=== PATIENT | female | born 1975 | race Caucasian/White ===

== ENCOUNTER → 2017-03-09 | Outpatient (CLI) | payer OTHER ==
--- NOTE | 2017-03-09 12:55 | CT ---
EXAMINATION TYPE: CT brain wo con DATE OF EXAM: 03/09/2017 COMPARISON: NONE HISTORY: 41-year-old female complains of chronic migraine headaches. TECHNIQUE: Examination was done in axial plane without intravenous contrast. Coronal and sagittal r econstructions performed. CT DLP: 1028 mGycm Automated exposure control for dose reduction was used. FINDINGS: Mild calvarial artifacts are present. Within this limitation, there is no evidence of acute intracra nial hemorrhage, acute ischemic changes, mass, mass-effect, or extra-axial fluid collection. There i s no effacement of cerebral sulci or basal subarachnoid cisterns. There is no hydrocephalus. There is no midline shift. Escudero-white matter distinction is preserved. Partially empty sella. Paranasal sinuses and mastoid air cells well pneumatized. Patient's gaze is divergent suggesting unde rlying strabismus. IMPRESSION: 1. No acute intracranial abnormality seen. 2. Divergent gaze suggests underlying strabismus. Clinically correlate.
--- NOTE | 2017-03-09 13:02 | MR ---
EXAMINATION TYPE: MR lumbar spine wo con DATE OF EXAM: 03/09/2017 12:33 PM COMPARISON: NONE HISTORY: Lumbago Multiplanar, MultiSpin echo imaging of the lumbar spine was performed. L1-L2: Normal disc appearance without desiccation. No herniation, protrusion or disc bulging. No ca nal stenosis is present. Foramina are patent bilaterally. L2-L3: Mild disc desiccation. No significant disc bulge or herniation. No central stenosis. Foramina are patent bilaterally. L3-L4: Mild to moderate disc desiccation. Posterocentral disc bulge with annular tear effaces the thomas tral thecal sac. No evidence for central stenosis or lateral recess stenosis. Foramina are patent praveen aterally. L4-L5: Mild to moderate disc desiccation. Posterocentral disc bulge with annular tear effaces the thomas tral thecal sac. No evidence for central stenosis or lateral recess stenosis. Foramina are patent praveen aterally. L5-S1: Moderate disc desiccation. Broad-based subligamentous disc herniation effaces the ventral thec al sac. No evidence for extruded component. Borderline right lateral recess stenosis. No evidence for central stenosis. No evidence for foraminal encroachment. Lumbar segments are intact. No paraspinal masses are identified. Conus medullaris has a normal appe arance. IMPRESSION: 1. Multilevel degenerative disc disease. 2. Disc bulging with annular tears at L3-4 and L4-5. Broad-based mild subligamentous disc herniation at L5-S1 as noted above.
== END | disposition home or self-care (01) ==
LOC: RADCTMAIN 11:29
PROVIDERS: ATTEND Psychiatry & Neurology Neurology
DX: M51.27 Other intervertebral disc displacement, lumbosacral region (principal); M51.36 Other intervertebral disc degeneration, lumbar region; H70.92 Unspecified mastoiditis, left ear
CPT/HCPCS: 70450; 72148

== ENCOUNTER → 2017-04-08 | Outpatient (CLI) | payer OTHER ==
--- NOTE | 2017-04-11 08:14 | MM ---
Reason for exam: screening (asymptomatic). Baseline mammogram. History: Patient is nulliparous. Family history of breast cancer in maternal aunt at age 30. Taking hormonal contraceptives for 1 year. Physical Findings: Nurse did not find any significant physical abnormalities on exam. MG Screening Mammo w CAD Bilateral CC, MLO, and XCCL view(s) were taken. There are bilateral rounded masses in the upper outer quadrant at posterior depth, possible lymph nodes, precautionary ultrasound will be performed. These results were verbally communicated with the patient and result sheet given to the patient on 04/08/17. ASSESSMENT: Incomplete: need additional imaging evaluation, BI-RAD 0 RECOMMENDATION: Ultrasound of both breasts. (upper outer quadrant)
--- NOTE | 2017-04-11 08:20 | USB ---
Reason for exam: additional evaluation requested from abnormal screening. History: Patient is nulliparous. Family history of breast cancer in maternal aunt at age 30. Taking hormonal contraceptives for 1 year. US Breast Limited BILAT Right breast ultrasound demonstrates a 0.7 x 0.5 x 1.0cm oval, solid lesion at 10 o'clock. Left breast ultrasound demonstrates a 0.5 x 0.5 x 0.5cm round lesion at 3 o'clock and an adjacent 0.6 x 0.3cm lesion at 3 o'clock. Benign non-enlarged lymph nodes with non-enlarged cortices. These results were verbally communicated with the patient and result sheet given to the patient on 04/08/17. ASSESSMENT: Benign, BI-RAD 2 RECOMMENDATION: Routine screening mammogram of both breasts in 1 year.
== END ==
LOC: RADMAMWWP 12:51
PROVIDERS: ATTEND Internal Medicine Geriatric Medicine
DX: Z12.31 Encounter for screening mammogram for malignant neoplasm of breast (principal)
CPT/HCPCS: 76642; G0202

== ENCOUNTER 2017-04-21 17:41 | Observation (INO) | payer OTHER ==
[2017-04-21] MEDS ORDERED: MORPHINE SULFATE 10 MG/ML SYRINGE IV STA (18:01)
[2017-04-21] MEDS ORDERED: SODIUM CHLORIDE 0.9% 1,000 ML IV STA ×2 (18:01)
[2017-04-21] MEDS ORDERED: SODIUM CHLORIDE 0.9% 500 ML IV STA (18:01)
[2017-04-21 18:28] LABS: Basophils # (A) 0.1 k/uL (0-0.2); Basophils % (A) 1 %; CH 30.4; CHCM 33.1; Eosinophils # (A) 0.2 k/uL (0-0.7); Eosinophils % (A) 2 %; HCT 46.2 % (34.0-46.0); HDW 2.46; HGB 14.8 gm/dL (11.4-16.0); Luc # (Auto) 0.07; Luc % (Auto) 1; Lymphocytes % (A) 20 %; MCH 29.7 pg (25.0-35.0); MCHC 32.1 g/dL (31.0-37.0); MCV 92.3 fL (80.0-100.0); Mean Platelet Volume 7.1; Monocytes # (A) 0.4 k/uL (0-1.0); Monocytes % (A) 4 %; Neutrophils # (A) 7.3 k/uL (1.3-7.7); Neutrophils % (A) 73 %; RDW 11.9 % (11.5-15.5); WBC (Perox) 9.36
[2017-04-21 18:40] LABS: ALT 23 U/L (9-52); AST 14 U/L (14-36); Alkaline Phosphatase 94 U/L (38-126); Anion Gap 19 mmol/L; Blood Urea Nitrogen 11 mg/dL (7-17); Calcium 10.7 mg/dL (8.4-10.2); Carbon Dioxide 17 mmol/L (22-30); Chloride 107 mmol/L (98-107); Glucose 125 mg/dL (74-99); Magnesium 1.7 mg/dL (1.6-2.3); Non-African American GFR(MDRD) >60 (>60 ml/min/1.73 sqM); Potassium 3.9 mmol/L (3.5-5.1); Sodium 143 mmol/L (137-145); Total Bilirubin 0.6 mg/dL (0.2-1.3); Total Protein 8.1 g/dL (6.3-8.2)
[2017-04-21 18:42] LABS: INR 0.9 (<1.2); Partial Thromboplastin Time 23.1 sec (22.0-30.0); Prothrombin Time 9.7 sec (9.0-12.0)
[2017-04-21] MEDS ORDERED: ONDANSETRON 4 MG/2 ML VIAL IVP STA (18:42)
--- NOTE | 2017-04-21 18:43 | XR ---
EXAMINATION TYPE: XR chest 2V DATE OF EXAM: 04/21/2017 COMPARISON: NONE HISTORY: Chest pain TECHNIQUE: Frontal and lateral views of the chest are obtained. FINDINGS: Heart and mediastinum are normal. Lungs are clear. Diaphragm is normal. Bony thorax is int act. There are chest leads. IMPRESSION: Normal chest
[2017-04-21 18:50] LABS: Creatine Kinase 32 U/L (30-135)
[2017-04-21 19:03] LABS: Creatine Kinase MB <0.2 ng/mL (0.0-2.4); Troponin I <0.012 ng/mL (0.000-0.034)
--- NOTE | 2017-04-21 19:07 | ED ---
General Adult HPI - General Chief complaint: Chest Pain Stated complaint: Chest Pain Time Seen by Provider: 04/21/17 18:00 Source: patient, RN notes reviewed, old records reviewed Mode of arrival: wheelchair Limitations: no limitations - History of Present Illness Initial comments: This is a 41-year-old female to the ER for evaluation regarding chest pain. Patient was essay for evaluation of a severe anterior chest pain. Chest pain or back. Nausea. Patient denies fever cough or congestion. Patient has history of diabetes occasionally elevated blood pressure his blood pressure is elevated now at persistent tachycardia. Patient denies recent travel history. Patient is from out of town states she has no doctor in the area. Patient admits chronic pain history. But states she never has this severe chest pain that is covered by shortness of breath. Patient feels exertional shortness of breath as well. - Related Data Home Medications Medication Instructions Recorded Confirmed Atorvastatin Calcium [Lipitor] 10 mg PO HS 04/21/17 04/21/17 Diltiazem HCl [Cartia Xt] 120 mg PO DAILY 04/21/17 04/21/17 Hydrocodone/Acetaminophen [[place] 1 tab PO Q6H PRN 04/21/17 04/21/17 10-325] Insulin Glargine [Lantus] 15 unit SQ HS 04/21/17 04/21/17 Ketorolac [Toradol] 10 mg PO Q4-6H PRN 04/21/17 04/21/17 Medroxyprogesterone Acetate 150 mg IM Q90D 04/21/17 04/21/17 [Depo-Provera] Promethazine [Phenergan] 25 mg PO Q4-6H PRN 04/21/17 04/21/17 Topiramate [Topamax] 100 mg PO BID 04/21/17 04/21/17 buPROPion HCL [Wellbutrin XL] 300 mg PO DAILY 04/21/17 04/21/17 sitaGLIPtin PHOS/metFORMIN HCL 1 tab PO BID 04/21/17 04/21/17 [Janumet Xr 50-1,000 mg Tablet] Allergies Allergy/AdvReac Type Severity Reaction Status Date / Time ciprofloxacin AdvReac COMPLEX Verified 04/21/17 19:23 MIGRAINE Review of Systems ROS Statement: Those systems with pertinent positive or pertinent negative responses have been documented in the HPI. ROS Other: All systems not noted in ROS Statement are negative. Past Medical History Past Medical History: Diabetes Mellitus Additional Past Medical History / Comment(s): Migraine headaches, herniated discs in back, neuropathy in legs and feet History of Any Multi-Drug Resistant Organisms: None Reported Past Surgical History: Orthopedic Surgery, Tonsillectomy Past Psychological History: Depression Smoking Status: Former smoker Past Alcohol Use History: Occasional Past Drug Use History: None Reported General Exam Limitations: no limitations General appearance: alert, in no apparent distress, anxious Head exam: Present: atraumatic, normocephalic, normal inspection Eye exam: Present: normal appearance, PERRL, EOMI. Absent: scleral icterus, conjunctival injection, periorbital swelling ENT exam: Present: normal exam, mucous membranes moist Neck exam: Present: normal inspection. Absent: tenderness, meningismus, lymphadenopathy Respiratory exam: Present: normal lung sounds bilaterally. Absent: respiratory distress, wheezes, rales, rhonchi, stridor Cardiovascular Exam: Present: normal rhythm, tachycardia, normal heart sounds. Absent: systolic murmur, diastolic murmur, rubs, gallop, clicks GI/Abdominal exam: Present: soft, normal bowel sounds. Absent: distended, tenderness, guarding, rebound, rigid Extremities exam: Present: normal inspection, full ROM, normal capillary refill. Absent: tenderness, pedal edema, joint swelling, calf tenderness Back exam: Present: normal inspection Neurological exam: Present: alert, oriented X3, CN II-XII intact Psychiatric exam: Present: normal affect, normal mood Skin exam: Present: warm, dry, intact, normal color. Absent: rash Course Vital Signs 04/21/17 04/21/17 04/21/17 17:43 18:22 18:40 Temperature 97.5 F L Pulse Rate 142 H 118 H Pulse Rate [ 132 H Pulse Oximetery ] Respiratory 24 24 20 Rate Blood Pressure 117/77 120/71 O2 Sat by Pulse 96 99 Oximetry 04/21/17 20:22 Temperature Pulse Rate 115 H Pulse Rate [ Pulse Oximetery ] Respiratory 16 Rate Blood Pressure 119/79 O2 Sat by Pulse 96 Oximetry - Reevaluation(s) Reevaluation #1: 04/21/17 21:24 Patient's heart rate is mildly improvement with IV resuscitation, pain control EKG Findings - EKG Comments: EKG Findings:: EKG shows sinus tachycardia rate 125, DE 120, QRS 68, QTC 585 Medical Decision Making - Medical Decision Making 41 female in the ER fevers urinary chest pain tachycardia and shortness of breath. Patient be admitted for cardiac observation - Lab Data Result diagrams: 04/21/17 18:18 04/21/17 18:18 Lab Results 04/21/17 04/21/17 04/21/17 Range/Units 18:18 18:18 18:18 WBC 10.0 (3.8-10.6) k/uL RBC 5.00 (3.80-5.40) m/uL Hgb 14.8 (11.4-16.0) gm/dL Hct 46.2 H (34.0-46.0) % MCV 92.3 (80.0-100.0) fL MCH 29.7 (25.0-35.0) pg MCHC 32.1 (31.0-37.0) g/dL RDW 11.9 (11.5-15.5) % Plt Count 402 (150-450) k/uL Neutrophils % 73 % Lymphocytes % 20 % Monocytes % 4 % Eosinophils % 2 % Basophils % 1 % Neutrophils # 7.3 (1.3-7.7) k/uL Lymphocytes # 2.0 (1.0-4.8) k/uL Monocytes # 0.4 (0-1.0) k/uL Eosinophils # 0.2 (0-0.7) k/uL Basophils # 0.1 (0-0.2) k/uL PT (9.0-12.0) sec INR (<1.2) APTT (22.0-30.0) sec D-Dimer (<0.60) mg/L FEU Sodium 143 (137-145) mmol/L Potassium 3.9 (3.5-5.1) mmol/L Chloride 107 (98-107) mmol/L Carbon Dioxide 17 L (22-30) mmol/L Anion Gap 19 mmol/L BUN 11 (7-17) mg/dL Creatinine 0.69 (0.52-1.04) mg/dL Est GFR (MDRD) Af Amer >60 (>60 ml/min/1.73 sqM) Est GFR (MDRD) Non-Af >60 (>60 ml/min/1.73 sqM) Glucose 125 H (74-99) mg/dL Calcium 10.7 H (8.4-10.2) mg/dL Magnesium 1.7 (1.6-2.3) mg/dL Total Bilirubin 0.6 (0.2-1.3) mg/dL AST 14 (14-36) U/L ALT 23 (9-52) U/L Alkaline Phosphatase 94 (38-126) U/L Total Creatine Kinase 32 (30-135) U/L CK-MB (CK-2) <0.2 (0.0-2.4) ng/mL CK-MB (CK-2) Rel Index Troponin I <0.012 (0.000-0.034) ng/mL Total Protein 8.1 (6.3-8.2) g/dL Albumin 5.4 H (3.5-5.0) g/dL Lipase 171 (23-300) U/L 04/21/ Range/Units 18:18 WBC (3.8-10.6) k/uL RBC (3.80-5.40) m/uL Hgb (11.4-16.0) gm/dL Hct (34.0-46.0) % MCV (80.0-100.0) fL MCH (25.0-35.0) pg MCHC (31.0-37.0) g/dL RDW (11.5-15.5) % Plt Count (150-450) k/uL Neutrophils % % Lymphocytes % % Monocytes % % Eosinophils % % Basophils % % Neutrophils # (1.3-7.7) k/uL Lymphocytes # (1.0-4.8) k/uL Monocytes # (0-1.0) k/uL Eosinophils # (0-0.7) k/uL Basophils # (0-0.2) k/uL PT 9.7 (9.0-12.0) sec INR 0.9 (<1.2) APTT 23.1 (22.0-30.0) sec D-Dimer 0.27 (<0.60) mg/L FEU Sodium (137-145) mmol/L Potassium (3.5-5.1) mmol/L Chloride (98-107) mmol/L Carbon Dioxide (22-30) mmol/L Anion Gap mmol/L BUN (7-17) mg/dL Creatinine (0.52-1.04) mg/dL Est GFR (MDRD) Af Amer (>60 ml/min/1.73 sqM) Est GFR (MDRD) Non-Af (>60 ml/min/1.73 sqM) Glucose (74-99) mg/dL Calcium (8.4-10.2) mg/dL Magnesium (1.6-2.3) mg/dL Total Bilirubin (0.2-1.3) mg/dL AST (14-36) U/L ALT (9-52) U/L Alkaline Phosphatase (38-126) U/L Total Creatine Kinase (30-135) U/L CK-MB (CK-2) (0.0-2.4) ng/mL CK-MB (CK-2) Rel Index Troponin I (0.000-0.034) ng/mL Total Protein (6.3-8.2) g/dL Albumin (3.5-5.0) g/dL Lipase (23-300) U/L - Radiology Data Radiology results: report reviewed (Chest x-ray CT chest negative for acute disease), image reviewed Critical Care Time Critical Care Time: Yes Total Critical Care Time: 31 Disposition Clinical Impression: Chest pain Disposition: ADMITTED IP TO THIS [facility] Condition: Undetermined
[2017-04-21] MEDS ORDERED: LORazepam 2 MG/ML INJ IV STA (19:25)
[2017-04-21] MEDS ORDERED: HYDROmorphone 2 MG/ML 1 ML SYRINGE IVP STA (19:25)
[2017-04-21] MEDS ORDERED: diphenhydrAMINE 50 MG/ML 1 ML VIAL IVP STA (19:25)
[2017-04-21] MEDS ORDERED: RX INFO: IV CONTRAST WAS GIVEN 1 EACH MISC MISCELLANE PRN (19:26)
--- NOTE | 2017-04-21 20:10 | CT ---
EXAMINATION TYPE: CT angio chest DATE OF EXAM: 04/21/2017 8:02 PM COMPARISON: NONE HISTORY: Chest pain and shortness of breath CT DLP: 444 mGycm Automated exposure control for dose reduction was used. CONTRAST: CTA scan of the thorax is performed with IV Contrast, patient injected with 100 mL of Omnipaque 350, pulmonary embolism protocol. There are 3-D post processed images.. FINDINGS: The lungs are clear of consolidation. There is no pleural effusion. There is no evidence of aortic aneurysm or dissection. I see no filling defects in the pulmonary arteries. There are no hilar masses. There is no mediastina l adenopathy. Bony thorax is intact. IMPRESSION: NEGATIVE CT ANGIOGRAM OF THE CHEST. NO EVIDENCE OF PULMONARY EMBOLISM.
[2017-04-21] MEDS ORDERED: HEPARIN SODIUM,PORCINE 5,000 UNIT/ML 1 ML VIAL IV ONE (20:22)
[2017-04-21] MEDS ORDERED: NITROGLYCERIN SL TABS 0.4 MG TAB SUBLINGUAL PRN (20:22)
[2017-04-21] MEDS ORDERED: HEPARIN SODIUM,PORCINE 5,000 UNIT/ML 1 ML VIAL IV PRN (20:22)
[2017-04-21] MEDS ORDERED: HEPARIN SODIUM,PORCINE/D5W PMX 25,000 UNIT in DEXTROSE/WATER 1 500ML.BAG IV SCH (20:30)
[2017-04-21] MEDS ORDERED: PROMETHAZINE 25 MG TAB PO PRN (22:52)
[2017-04-21] MEDS ORDERED: INSULIN GLARGINE 100 UNIT/ML 10 ML VIAL SQ SCH (23:00)
[2017-04-21] MEDS ORDERED: ATORVASTATIN 10 MG TAB PO SCH (23:00)
[2017-04-21 23:06] LABS: Glucose,Whole Blood 152 mg/dL (75-99)
[2017-04-21] MEDS: LORazepam 2 MG/ML INJ IV PRN (23:25)
[2017-04-21] MEDS: HYDROmorphone 2 MG/ML 1 ML SYRINGE IVP PRN (23:26)
[2017-04-21] MEDS: LINAGLIPTIN 5 MG TABLET PO SCH (23:27)
[2017-04-21] MEDS: TOPIRAMATE 25 MG TAB PO SCH (23:27)
[2017-04-22 01:41] LABS: Creatine Kinase 35 U/L (30-135)
[2017-04-22 01:55] LABS: Creatine Kinase MB <0.2 ng/mL (0.0-2.4); Troponin I <0.012 ng/mL (0.000-0.034)
[2017-04-22] MEDS: HYDROmorphone 2 MG/ML 1 ML SYRINGE IVP PRN ×2 (03:36→07:45)
[2017-04-22] MEDS: LORazepam 2 MG/ML INJ IV PRN ×2 (03:36→12:12)
[2017-04-22 05:06] LABS: Cholesterol 90 mg/dL (<200); HDL Cholesterol 27 mg/dL (40-60)
[2017-04-22 07:05] LABS: Glucose,Whole Blood 154 mg/dL (75-99)
[2017-04-22 07:46] VITALS: RESP 18
[2017-04-22 08:19] LABS: Creatine Kinase 29 U/L (30-135)
[2017-04-22 08:32] LABS: Creatine Kinase MB <0.2 ng/mL (0.0-2.4); Troponin I <0.012 ng/mL (0.000-0.034)
[2017-04-22] MEDS ORDERED: ASPIRIN 325 MG TAB PO SCH (09:00)
[2017-04-22] MEDS ORDERED: ATORVASTATIN 80 MG TAB PO SCH (09:00)
[2017-04-22] MEDS ORDERED: AMINOPHYLLINE 500 MG/20 ML VIAL IV PRN (09:40)
[2017-04-22] MEDS ORDERED: REGADENOSON 0.4 MG/5 ML SYRINGE IV ONE (09:40)
[2017-04-22] MEDS ORDERED: METOPROLOL TARTRATE 50 MG TAB PO SCH (11:30)
--- NOTE | 2017-04-22 11:32 | P.CRDCN ---
History of Present Illness Consult date: 04/22/17 History of present illness: This is a 41-year-old Caucasion female with past medical history significant for diabetes mellitus, anxiety and migraine headaches. She denies history of CAD and has never seen a operations associate for any reason. We have been asked to see her in consultation for complaints of left anterior wall chest pain intermittently for the previous 2-3 weeks. She states the pain varies from sharp to heavy. It is not associated with movement or deep inspiration. She can specify no aggravating or alleviating factors. She c/o associated intermittent shortness of breath and radiation to her left upper arm at times. She denies orthopnea or PND. Heart rate upon arrival was 133. She is prescribed diltiazam per PCP to be used for migraine prevention per the patient. She states she only recently started taking this again because she felt it wasn't working. EKG reveals sinus tachycardia with rate of 125 iwth T-wave inversions in inferior leads. There is no old EKG for comparison. Chest xray negative for an acute cardiopulmoary process. CTA negative for PE. Cardiac enzymes negative x3, potassium 3.9, magnesium 1.7, Hgb 14.8, platelets 369. Blood pressure 118/76 with heart rate 116. Review of Systems CONSTITUTIONAL: Denies fever. Denies chills. EYES: Denies blurred vision. Denies vision changes. Denies eye pain. EARS, NOSE, MOUTH & THROAT: Complains of constant chronic headache headache. Denies sore throat. Denies ear pain. CARDIOVASCULAR: Complains of intermittent chest pain. Denies shortness of breath. Denies orthopnea. Denies PND. Complains of constant palpitations. RESPIRATORY: Denies cough. GASTROINTESTINAL: Denies abdominal pain. Denies diarrhea. Denies constipation. Denies nausea. Denies vomiting. MUSCULOSKELETAL: Denies myalgias. INTEGUMENTARY: Denies pruitis. Denies rash. NEUROLOGIC: Denies numbness. Denies tingling. Denies weakness. PSYCHIATRIC: Denies anxiety. Denies depression. ENDOCRINE: Denies fatigue. Denies weight change. Denies polydipsia. Denies polyurina. GENITOURINARY: Denies burning, hematuria or urgency with micturation. HEMATOLOGIC: Denies history of anemia. Denies bleeding. Past Medical History Past Medical History: Diabetes Mellitus Additional Past Medical History / Comment(s): severe Migraine headaches, gastroparesis, herniated discs in back and neck, neuropathy in legs and feet History of Any Multi-Drug Resistant Organisms: None Reported Past Surgical History: Orthopedic Surgery, Tonsillectomy Additional Past Surgical History / Comment(s): left humerus blaise and 8 pins Past Anesthesia/Blood Transfusion Reactions: No Reported Reaction Past Psychological History: Anxiety, Depression Smoking Status: Never smoker Past Alcohol Use History: Occasional Past Drug Use History: None Reported - Past Family History Mother Family Medical History: Diabetes Mellitus, Myocardial Infarction ([place]), Renal Disease Additional Family Medical History / Comment(s): epilepsy, depression and migraines Medications and Allergies Home Medications Medication Instructions Recorded Confirmed Type Atorvastatin Calcium [Lipitor] 10 mg PO HS 04/21/17 04/21/17 History Diltiazem HCl [Cartia Xt] 120 mg PO DAILY 04/21/17 04/21/17 History Insulin Glargine [Lantus] 15 unit SQ HS 04/21/17 04/21/17 History Ketorolac [Toradol] 10 mg PO Q4-6H PRN 04/21/17 04/21/17 History Medroxyprogesterone Acetate 150 mg IM Q90D 04/21/17 04/21/17 History [Depo-Provera] Promethazine [Phenergan] 25 mg PO Q4-6H PRN 04/21/17 04/21/17 History Topiramate [Topamax] 75 mg PO BID 04/21/17 04/21/17 History buPROPion HCL [Wellbutrin XL] 300 mg PO DAILY 04/21/17 04/21/17 History sitaGLIPtin PHOS/metFORMIN HCL 1 tab PO BID 04/21/17 04/21/17 History [Janumet Xr 50-1,000 mg Tablet] Allergies Allergy/AdvReac Type Severity Reaction Status Date / Time ciprofloxacin AdvReac COMPLEX Verified 04/21/17 19:23 MIGRAINE metoclopramide [From Reglan] AdvReac Itching Verified 04/22/17 03:49 Physical Exam Vitals: Vital Signs Temp Pulse Pulse Pulse Resp BP BP 04/22/17 08:46 103 H 04/22/17 07:45 97.5 F L 116 H 18 118/76 04/22/17 03:45 97 16 04/22/17 03:41 98.1 F 98 16 102/59 04/21/17 23:56 98.3 F 122 H 16 111/73 04/21/17 23:50 98.5 F 124 H 18 125/78 04/21/17 22:00 113 H 18 04/21/17 21:23 112 H 18 129/77 04/21/17 20:22 115 H 16 119/79 04/21/17 18:40 118 H 20 120/71 04/21/17 18:22 132 H 24 04/21/17 17:43 97.5 F L 142 H 24 117/77 Pulse Ox 04/22/17 08:46 04/22/17 07:45 96 04/22/17 03:45 04/22/17 03:41 99 04/21/17 23:56 97 04/21/17 23:50 94 L 04/21/17 22:00 04/21/17 21:23 98 04/21/17 20:22 96 04/21/17 18:40 99 04/21/17 18:22 04/21/17 17:43 96 Intake and Output 04/21/17 04/22/17 04/22/17 22:59 06:59 14:59 Intake Total 130.556 Balance 130.556 Intake: Intake, IV Titration 130.556 Amount Heparin Sodium,Porcine/ 130.556 D5w Pmx 25,000 unit In Dextrose/Water 1 500ml. bag @ 12 UNITS/KG/HR 15. 24 mls/hr IV .Q24H [facility] Rx #:[id number] Other: Voiding Method Toilet Toilet Toilet # Voids 1 2 Weight 63.503 kg GENERAL: This is a 41-year-old female in no apparent distress at the time of my examination. HEENT: Head is atraumatic, normocephalic. Pupils are equal, round. Sclerae anicteric. Conjunctivae are clear. Mucous membranes of the mouth are moist. Neck is supple. There is no jugular venous distention. No carotid bruit is heard. LUNGS: Clear to auscultation no wheezes, rales or rhonchi. No chest wall tenderness is noted on palpation or with deep breathing. HEART: Regular rate and rhythm without murmurs, rubs or gallops. S1 and S2 heard. ABDOMEN: Soft, nontender. Bowel sounds are heard. No organomegaly noted. EXTREMITIES: 2+ peripheral pulses with no evidence of peripheral edema and no calf tenderness noted. NEUROLOGIC: Patient is awake, alert and oriented x3. Results 04/22/17 04:06 04/21/17 18:18 Cardiac Enzymes 04/21/17 04/21/17 04/22/17 Range/Units 18:18 18:18 00:48 AST 14 (14-36) U/L CK-MB (CK-2) <0.2 <0.2 (0.0-2.4) ng/mL Troponin I <0.012 <0.012 (0.000-0.034) ng/mL 04/22/17 Range/Units 07:17 AST (14-36) U/L CK-MB (CK-2) <0.2 (0.0-2.4) ng/mL Troponin I <0.012 (0.000-0.034) ng/mL Coagulation 04/21/17 04/22/17 Range/Units 18:18 04:06 PT 9.7 (9.0-12.0) sec APTT 23.1 27.9 (22.0-30.0) sec Lipids 04/22/17 Range/Units 04:06 Triglycerides 235 H (<150) mg/dL Cholesterol 90 (<200) mg/dL HDL Cholesterol 27 L (40-60) mg/dL CBC 04/21/17 04/22/17 Range/Units 18:18 04:06 WBC 10.0 (3.8-10.6) k/uL RBC 5.00 (3.80-5.40) m/uL Hgb 14.8 (11.4-16.0) gm/dL Hct 46.2 H (34.0-46.0) % Plt Count 402 369 (150-450) k/uL Comprehensive Metabolic Panel 04/21/17 Range/Units 18:18 Sodium 143 (137-145) mmol/L Potassium 3.9 (3.5-5.1) mmol/L Chloride 107 (98-107) mmol/L Carbon Dioxide 17 L (22-30) mmol/L BUN 11 (7-17) mg/dL Creatinine 0.69 (0.52-1.04) mg/dL Glucose 125 H (74-99) mg/dL Calcium 10.7 H (8.4-10.2) mg/dL AST 14 (14-36) U/L ALT 23 (9-52) U/L Alkaline Phosphatase 94 (38-126) U/L Total Protein 8.1 (6.3-8.2) g/dL Albumin 5.4 H (3.5-5.0) g/dL Current Medications Generic Name Dose Route Start Last Admin Trade Name Freq PRN Reason Stop Dose Admin Aminophylline 100 mg 04/22/17 09:40 Aminophylline IV ONCE PRN Patient Response Aspirin 325 mg 04/22/17 09:00 Aspirin PO DAILY STEPHEN Atorvastatin Calcium 10 mg 04/21/17 23:00 04/21/17 23:27 Lipitor PO 10 mg HS STEPHEN Administration Hydromorphone HCl 2 mg 04/21/17 19:25 04/22/17 07:45 Dilaudid IVP 2 mg Q4HR PRN Administration Pain Insulin Glargine 15 unit 04/21/17 23:00 04/21/17 23:27 Lantus SQ 15 unit HS STEPHEN Administration Linagliptin 5 mg 04/21/17 23:00 04/21/17 23:27 Tradjenta PO 5 mg DAILY STEPHEN Administration Lorazepam 1 mg 04/21/17 19:25 04/22/17 03:36 Ativan IV 1 mg Q4HR PRN Administration Anxiety Miscellaneous Information 1 each 04/21/17 19:26 04/21/17 20:23 Rx Info: Iv Contrast Was Given MISCELLANE 04/23/17 19:26 1 each DAILY PRN Administration Per Protocol Nitroglycerin 0.4 mg 04/21/17 20:22 Nitrostat SUBLINGUAL Q5M PRN Chest Pain Promethazine HCl 25 mg 04/21/17 22:52 Phenergan PO Q6HR PRN Nausea And Vomiting Topiramate 75 mg 04/21/17 23:00 04/21/17 23:27 Topamax PO 75 mg BID STEPHEN Administration Intake and Output 04/21/17 04/22/17 04/22/17 22:59 06:59 14:59 Intake Total 130.556 Balance 130.556 Intake: Intake, IV Titration 130.556 Amount Heparin Sodium,Porcine/ 130.556 D5w Pmx 25,000 unit In Dextrose/Water 1 500ml. bag @ 12 UNITS/KG/HR 15. 24 mls/hr IV .Q24H [facility] Rx #:[id number] Other: Voiding Method Toilet Toilet Toilet # Voids 1 2 Weight 63.503 kg 04/22/17 04:06 04/21/17 18:18 Assessment and Plan Assessment: ASSESSMENT 1. Chest pain, atypical 2. Tachycardia with EKG changes 3. Dyslipidemia PLAN We will add metoprolol 50 mg PO BID to her daily regimen for heart rate control and will discontinue diltiazem for now. This can be addressed with her neurologist as an outpatient as whether to continue or not for migraines. Obtain 2D echocardiogram and doppler study to assess cardiac structure and function. Perform Lexiscan stress test. We will continue to follow with this patient and further recommendations will be based upon clinical course. Nurse Practitioner note has been reviewed, I agree with a documented findings and plan of care. Patient was seen and examined.
[2017-04-22 12:12] LABS: Glucose,Whole Blood 138 mg/dL (75-99)
[2017-04-22] MEDS: TOPIRAMATE 25 MG TAB PO SCH (12:12)
--- NOTE | 2017-04-22 12:19 | ECHOF ---
Referral Reason:chest pain MEASUREMENTS -------- HEIGHT: 160.0 cm WEIGHT: 63.5 kg BP: 118/76 RVIDd: 2.8 cm (< 3.3) IVSd: 0.9 cm (0.6 - 1.1) LVIDd: 3.2 cm (3.9 - 5.3) LVPWd: 0.9 cm (0.6 - 1.1) IVSs: 1.0 cm LVIDs: 2.3 cm LVPWs: 1.2 cm LA Diam: 3.0 cm (2.7 - 3.8) LAESV Index (A-L): 13.36 ml/m Ao Diam: 2.2 cm (2.0 - 3.7) AV Cusp: 1.9 cm (1.5 - 2.6) LA Diam: 3.2 cm (2.7 - 3.8) MV EXCURSION: 18.612 mm (> 18.000) MV EF SLOPE: 76 mm/s (70 - 150) EPSS: 0.3 cm MV E Tobi: 0.80 m/s MV DecT: 173 ms MV A Tobi: 0.67 m/s MV E/A Ratio: 1.20 RAP: 5.00 mmHg RVSP: 9.97 mmHg FINDINGS -------- Sinus rhythm. This was a technically excellent study. LV size, wall thickness and systolic function are normal, with an EF greater than 55%. The left thomas tricular size is normal. The right ventricle is normal in size. The left atrial size is normal. The right atrial size is normal. The aortic valve is trileaflet, and appears structurally normal. No aortic stenosis or regurgitation. Mild mitral regurgitation is present. Mild tricuspid regurgitation present. There is no evidence of pulmonary hypertension. The right v entricular systolic pressure, as measured by Doppler, is 9.97mmHg. There is no pulmonic regurgitation present. The aortic root size is normal. There is no pericardial effusion. CONCLUSIONS -------- 1. This was a technically excellent study. 2. LV size, wall thickness and systolic function are normal, with an EF greater than 55%. 3. The left ventricular size is normal. 4. The aortic valve is trileaflet, and appears structurally normal. No aortic stenosis or regurgitati on. 5. Mild mitral regurgitation is present. 6. Mild tricuspid regurgitation present. 7. There is no evidence of pulmonary hypertension. 8. The right ventricular systolic pressure, as measured by Doppler, is 9.97mmHg. 9. There is no pulmonic regurgitation present. 10. The aortic root size is normal. 11. There is no pericardial effusion. CERTIFIED HAND THERAPIST: Felicia Shah RDCS
--- NOTE | 2017-04-22 12:29 | NM ---
EXAMINATION TYPE: NM stress lexiscan cardiolite DATE OF EXAM: 04/22/2017 COMPARISON: NONE HISTORY: Chest pain TECHNIQUE: After the intravenous administration of 10.9 mCi Tc 99m Sestamibi - Cardiolite resting SP ECT images acquired 45 minutes post injection. The patient received 0.4mg Lexiscan, 30 mCi Tc 99m Sestamibi - Stress images obtained 30 minutes post injection FINDINGS: Review of stress and rest SPECT images demonstrates no distinct perfusion abnormality. Gated analysi s shows normal wall motion with an estimated left ventricular ejection fraction of 57 %. IMPRESSION: No scintigraphic evidence for reversible ischemia.
--- NOTE | 2017-04-22 12:46 | EST ---
EXERCISE STRESS DATE OF SERVICE: 04/22/2017 AGE: 41 SEX: Female HT: 63" WT: 140 pounds PROTOCOL: Lexiscan Cardiolite STAGE: DURATION OF EXERCISE: HEART RATE REST: 99 BLOOD PRESSURE REST: 129/83 MAXIMUM HEART RATE ACHIEVED: 135 MAXIMUM BLOOD PRESSURE: 141/75 85% MPHR: 153 100% MPHR: 180 METS: INDICATION OF THE STUDY: Chest pain. STRESS DATA: Pretesting physical examination showed heart rate of 99, pressure is 129/83 mmHg. Baseline EKG showed sinus mechanism. The patient was given 0.4 mg of Lexiscan over 15 seconds per protocol. Max heart rate was 135 beats per minute and maximum pressure was 141/75 mmHg. Clinically, the patient did not have any symptoms of chest pain or discomfort and the EKG did not show any significant ST or T-wave abnormalities consistent with ischemia. CONCLUSION: 1. Nondiagnostic electrocardiogram stress testing in response to Lexiscan. 2. Please follow up on the Cardiolite on a separate report from the radiology department. MMODL / IJN: [id number] /
[2017-04-22] MEDS: LINAGLIPTIN 5 MG TABLET PO SCH (14:24)
[2017-04-22] MEDS ORDERED: IBUPROFEN 600 MG TAB PO PRN (14:36)
[2017-04-22 15:35] VITALS: BP 124/69; PULSE 64; TEMP 97.8
--- NOTE | 2017-04-22 18:29 | P.HPIM ---
History of Present Illness H&P Date: 04/22/17 Chief Complaint: CP This is 41 years old female who presented to the emergency department with new onset chest pain on multiple other findings. Patient is diabetic and uncontrolled does not follow up with her primary care physician still smoking and has been complaining of ongoing chest pain for almost 3 month and said that the pain comes all of a sudden starts in the mediastinum area radiates to her right shoulder and right chest sometimes to her back and sometimes to the abdomen. Patient stated that she gets short of breath and nauseous with the chest pain comes usually on rest and wake her up from sleep at the nighttime at some point. The patient stated that she has been complaining of the same pain for almost like 2 years but on periodic basis and yesterday became more stronger and forcep to come into the emergency department. Patient still smoke 1 pack per day denies alcohol or drug abuse and kept requesting Dilaudid during this hospital stay for her pain control when patient asked about her pain she stated that it's all over her body. Initial evaluation in the emergency room revealed normal troponin 2 normal EKG and patient was admitted to observation due to tachycardia with heart rate was in the 120s. Patient currently seems to be at baseline where she is pain-free and heart rate has become more stable less than 100 after seen by cardiology and increasing dose of metoprolol Review of Systems All 14 systems reviewed and negative except as above Past Medical History Past Medical History: Diabetes Mellitus Additional Past Medical History / Comment(s): severe Migraine headaches, gastroparesis, herniated discs in back and neck, neuropathy in legs and feet History of Any Multi-Drug Resistant Organisms: None Reported Past Surgical History: Orthopedic Surgery, Tonsillectomy Additional Past Surgical History / Comment(s): left humerus blaise and 8 pins Past Anesthesia/Blood Transfusion Reactions: No Reported Reaction Past Psychological History: Anxiety, Depression Smoking Status: Never smoker Past Alcohol Use History: Occasional Past Drug Use History: None Reported - Past Family History Mother Family Medical History: Diabetes Mellitus, Myocardial Infarction ([place]), Renal Disease Additional Family Medical History / Comment(s): epilepsy, depression and migraines Medications and Allergies Home Medications Medication Instructions Recorded Confirmed Type Atorvastatin Calcium [Lipitor] 10 mg PO HS 04/21/17 04/21/17 History Insulin Glargine [Lantus] 15 unit SQ HS 04/21/17 04/21/17 History Ketorolac [Toradol] 10 mg PO Q4-6H PRN 04/21/17 04/21/17 History Medroxyprogesterone Acetate 150 mg IM Q90D 04/21/17 04/21/17 History [Depo-Provera] Promethazine [Phenergan] 25 mg PO Q4-6H PRN 04/21/17 04/21/17 History Topiramate [Topamax] 75 mg PO BID 04/21/17 04/21/17 History buPROPion HCL [Wellbutrin XL] 300 mg PO DAILY 04/21/17 04/21/17 History sitaGLIPtin PHOS/metFORMIN HCL 1 tab PO BID 04/21/17 04/21/17 History [Janumet Xr 50-1,000 mg Tablet] Metoprolol Tartrate [Lopressor] 50 mg PO BID #60 tab 04/22/17 Rx Allergies Allergy/AdvReac Type Severity Reaction Status Date / Time ciprofloxacin AdvReac COMPLEX Verified 04/21/17 19:23 MIGRAINE metoclopramide [From Reglan] AdvReac Itching Verified 04/22/17 03:49 Physical Exam Vitals: Vital Signs Temp Pulse Pulse Pulse Resp BP BP 04/22/17 15:34 97.8 F 64 18 124/69 04/22/17 12:14 98.9 F 117 H 18 123/73 04/22/17 08:46 103 H 04/22/17 07:45 97.5 F L 116 H 18 118/76 04/22/17 03:45 97 16 04/22/17 03:41 98.1 F 98 16 102/59 04/21/17 23:56 98.3 F 122 H 16 111/73 04/21/17 23:50 98.5 F 124 H 18 125/78 04/21/17 22:00 113 H 18 04/21/17 21:23 112 H 18 129/77 04/21/17 20:22 115 H 16 119/79 04/21/17 18:40 118 H 20 120/71 Pulse Ox 04/22/17 15:34 98 04/22/17 12:14 99 04/22/17 08:46 04/22/17 07:45 96 04/22/17 03:45 04/22/17 03:41 99 04/21/17 23:56 97 04/21/17 23:50 94 L 04/21/17 22:00 04/21/17 21:23 98 04/21/17 20:22 96 04/21/17 18:40 99 Intake and Output 04/22/17 04/22/17 04/22/17 06:59 14:59 22:59 Intake Total 130.556 Balance 130.556 Intake: Intake, IV Titration 130.556 Amount Heparin Sodium,Porcine/ 130.556 D5w Pmx 25,000 unit In Dextrose/Water 1 500ml. bag @ 12 UNITS/KG/HR 15. 24 mls/hr IV .Q24H STEPHEN Rx #:[id number] Other: Voiding Method Toilet Toilet Toilet # Voids 2 1 General and have stated age in no acute distress Lungs clear to auscultation bilaterally Heart normal S1-S2 Neck supple no masses no thyromegaly Abdomen soft nontender no mass past. All 4 quadrant Skin no rash Neuro cranial nerves II-12 intact Psych seems to be stressed and emotional Results CBC & Chem 7: 04/22/17 04:06 04/21/17 18:18 Labs: Abnormal Lab Results - Last 24 Hours (Table) 04/21/17 04/21/17 04/21/17 Range/Units 18:18 18:18 23:03 Hct 46.2 H (34.0-46.0) % Carbon Dioxide 17 L (22-30) mmol/L Glucose 125 H (74-99) mg/dL POC Glucose (mg/dL) 152 H (75-99) mg/dL Calcium 10.7 H (8.4-10.2) mg/dL Total Creatine Kinase (30-135) U/L Albumin 5.4 H (3.5-5.0) g/dL Triglycerides (<150) mg/dL HDL Cholesterol (40-60) mg/dL 04/22/17 04/22/17 04/22/17 Range/Units 04:06 07:01 07:17 Hct (34.0-46.0) % Carbon Dioxide (22-30) mmol/L Glucose (74-99) mg/dL POC Glucose (mg/dL) 154 H (75-99) mg/dL Calcium (8.4-10.2) mg/dL Total Creatine Kinase 29 L (30-135) U/L Albumin (3.5-5.0) g/dL Triglycerides 235 H (<150) mg/dL HDL Cholesterol 27 L (40-60) mg/dL 04/22/17 Range/Units 12:09 Hct (34.0-46.0) % Carbon Dioxide (22-30) mmol/L Glucose (74-99) mg/dL POC Glucose (mg/dL) 138 H (75-99) mg/dL Calcium (8.4-10.2) mg/dL Total Creatine Kinase (30-135) U/L Albumin (3.5-5.0) g/dL Triglycerides (<150) mg/dL HDL Cholesterol (40-60) mg/dL Thrombosis Risk Factor Assmnt - DVT/VTE Prophylaxis DVT/VTE Prophylaxis: Mechanical Prophylaxis ordered - Choose All That Apply Any of the Below Risk Factors Present?: No Assessment and Plan Assessment: 1. Chest pain. Atypical. Likely related to anxiety/panic attack given the tachycardia. I would like to follow-up with cardiology recommendation but I would like also to consult psychiatry for further evaluation consider avoiding IV pain medication as patient has drug-seeking behavior and give the patient's Tylenol or Motrin for her chest pain. Other consideration needs to be followed up outpatient for EGD and proton pump inhibitors treatment on outpatient basis. Plan discussed with the patient and the nursing staff and we will follow up closely consider discharging patient home once cleared by psychiatry. 2. Anxiety and panic attack. Management as above. 3. Obesity. Counseled patient regarding weight loss. 4. Tobacco dependency. Counseled patient regarding cessation. 5. Diabetes mellitus. Follow-up with primary care physician regarding tight control. 6. Hyperlipidemia. Continue statin. 7. Hypertension. Patient on beta yahaira we will monitor and have patient follow -up with her primary care physician outpatient. Discharge planning based on clinical progress
== END 2017-04-22 16:58 | disposition home or self-care (01) ==
LOC: EC 17:41 → 3OBS 20:22
PROVIDERS: ADMIT Internal Medicine; ATTEND Internal Medicine
DX: R07.89 Other chest pain (principal); K31.84 Gastroparesis; E11.43 Type 2 diabetes mellitus with diabetic autonomic (poly)neuropathy; R00.0 Tachycardia, unspecified; G89.29 Other chronic pain; R06.02 Shortness of breath; G43.909 Migraine, unspecified, not intractable, without status migrainosus; F32.9 Major depressive disorder, single episode, unspecified; M50.20 Other cervical disc displacement, unspecified cervical region; E66.9 Obesity, unspecified; I10 Essential (primary) hypertension; F41.0 Panic disorder [episodic paroxysmal anxiety]; F17.210 Nicotine dependence, cigarettes, uncomplicated; E11.65 Type 2 diabetes mellitus with hyperglycemia; E78.5 Hyperlipidemia, unspecified; Z79.899 Other long term (current) drug therapy; Z79.4 Long term (current) use of insulin; Z88.2 Allergy status to sulfonamides; Z82.49 Family history of ischemic heart disease and other diseases of the circulatory system; Z88.8 Allergy status to other drugs, medicaments and biological substances; Z76.5 Malingerer [conscious simulation]; Z68.24 Body mass index [BMI] 24.0-24.9, adult
CPT/HCPCS: 96361 ×2; 96366 ×3; 96376 ×3; 96365; 96375; 99291; 36415; 93005; 93017; 93306; 85379; 80061; 80053; 82550 ×2; 82553 ×2; 83690; 83735; 84484 ×2; 85025; 85049; 85610; 85730 ×2; 71020; 71275; 78452; G0378 ×2; A9500; J2060 ×2; J1170 ×2; J1200; J1644 ×2; Q9967; J2270; J2405; J2785

== ENCOUNTER → 2017-08-16 | Outpatient (CLI) | payer OTHER ==
--- NOTE | 2017-08-16 08:59 | MR ---
MRI CERVICAL SPINE: CLINICAL HISTORY: Cervicalgia per order. TECHNIQUE: Multiplanar, multisequence imaging of the cervical spine is performed without IV contrast. COMPARISON: None. FINDINGS: Sagittal images of the cervical spine show the craniocervical junction to appear within nor mal limits. The cervical and upper thoracic spinal cord is normal in course, caliber, and signal. V ertebral alignment is straightened. The vertebral body and intravertebral disk heights are normal. S mall posterior disc herniation C6-C7 level as seen on sagittal images. The bone marrow signal intensi ty is within normal limits. No significant spurring is seen. Axial images show the C2-C3 and C3-C4 levels to appear within normal limits. Axial images at C4-C5 level show small right foraminal and central disc protrusion mildly effacing an terior thecal sac and axial image 30 causing mild right-sided neural foraminal narrowing. Left-sided neural foramen is patent. Axial images at C5-C6 level are felt within normal limits. Axial images at C6-C7 level show focal right paracentral disc protrusion effacing anterior thecal sac on axial image 15, bilateral neural foramina are patent. Axial images at C7-T1 level are felt within normal limits. IMPRESSION: Straightening of cervical spine with disc herniations C4-C5 and more prominent disc herni ation C6-C7 level noted as detailed above.
== END | disposition home or self-care (01) ==
LOC: RADMRIMAIN 08:09
PROVIDERS: ATTEND Psychiatry & Neurology Neurology
DX: M50.221 Other cervical disc displacement at C4-C5 level (principal); Z88.1 Allergy status to other antibiotic agents; Z88.8 Allergy status to other drugs, medicaments and biological substances
CPT/HCPCS: 72141

== ENCOUNTER → 2018-06-12 | Outpatient (CLI) | payer OTHER ==
--- NOTE | 2018-06-12 09:37 | MM ---
Reason for exam: clinical finding. Last mammogram was performed 1 year and 2 months ago. History: Patient is nulliparous. Family history of breast cancer in maternal aunt at age 30. Taking hormonal contraceptives for 1 year. Indicated problem(s): lump or thickening in the left breast. Physical Findings: Nurse did not find any significant physical abnormalities on exam. MG Diagnostic Mammo w CAD SHANE Bilateral CC and MLO view(s) were taken. Prior study comparison: April 08, 2017, bilateral MG screening mammo w CAD. There are scattered fibroglandular densities. Benign left axillary tail lymph nodes. No significant new findings when compared with previous films. These results were verbally communicated with the patient and result sheet given to the patient on 06/12/18. ASSESSMENT: Negative, BI-RAD 1 RECOMMENDATION: Routine screening mammogram of both breasts in 1 year. Manage on a clinical basis with regard to left breast pain.
== END | disposition home or self-care (01) ==
LOC: RADMAMWWP 08:14
PROVIDERS: ATTEND Internal Medicine Geriatric Medicine
DX: N63.10 Unspecified lump in the right breast, unspecified quadrant (principal); N63.20 Unspecified lump in the left breast, unspecified quadrant
CPT/HCPCS: 77066